=== PATIENT | female | born 1985 | race Caucasian/White ===

== ENCOUNTER 2017-08-19 06:48 | Inpatient (IN) | payer OTHER ==
[2017-08-19] MEDS ORDERED: LR / Pitocin 40 units/1000 ml 1,000 ML ONE (07:10)
[2017-08-19] MEDS ORDERED: Lidocaine 1% (PF) 30 ML VIAL ONE (07:11)
[2017-08-19] MEDS ORDERED: Oxytocin 10 UNITS/ML VIAL ONE (07:11)
--- NOTE | 2017-08-19 08:08 | PDOC.LDHP ---
Labor and Delivery H&P Chief complaint: contractions HPI: Patient started candace at 0530 this am. Denies LOF, VB. + FM Current gestational age (weeks): 39 Dating criteria: last menstrual period, first trimester ultrasound Grav: 8 Para: 5 Current complications: none Past Medical History: Hypothyroid - not on medication Current medications: pre- vitamins Social history: none - Physical Exam Vital signs reviewed and normal: yes General: breathing through contractions Heart: RRR Lungs: nonlabored breathing Abdomen: gravid Extremeties: trace edema FHT: category 1 - Vaginal Exam cm dilated: 9 (per RN) Effacement: 100% Station: 2+ - OB Labs Blood type: A RH: negative Antibody Screen: negative HIV: negative RPR: negative HEPSAg: negative 1 hour GCT: negative GBS: negative Urine drug screen: not done - Assessment L&D Assessment: term patient in labor - Plan Plan: admit to L&D, other (Low intervention protocol)
[2017-08-19] MEDS ORDERED: Lidocaine 1% (PF) 30 ML VIAL SC PRN (08:10)
[2017-08-19] MEDS ORDERED: Ondansetron HCl/PF 4 MG/2 ML Vial IVP PRN ×2 (08:10→10:29)
[2017-08-19] MEDS ORDERED: Ibuprofen 800 MG TAB PO PRN (08:10)
[2017-08-19] MEDS ORDERED: Promethazine HCl 25 MG/ML VIAL IM PRN (08:10)
[2017-08-19] MEDS ORDERED: LR / Pitocin 40 units/1000 ml 1,000 ML IV PRN (08:10)
[2017-08-19] MEDS ORDERED: Misoprostol 200 MCG TAB PR PRN (08:10)
[2017-08-19] MEDS ORDERED: Acetaminophen 500 MG TAB PO PRN (08:10)
[2017-08-19] MEDS ORDERED: Carboprost 250 MCG/ML AMP IM PRN (08:10)
[2017-08-19] MEDS ORDERED: Diphenoxylate HCl/Atropine Tablet PO PRN ×2 (08:10)
[2017-08-19] MEDS ORDERED: HYDROcodone/Acetaminophen 5/325 mg Tablet PO PRN ×4 (08:10→10:29)
--- NOTE | 2017-08-19 08:10 | PDOC.OPDEL ---
OB Operative/Delivery Note Delivery Dr/Surgeon: Kerrie Rubio CNM Pre-Delivery Diagnosis: active labor Procedure/Post Delivery Dx: spontaneous vaginal delivery Weeks gestation: 39 Anesthesia: none - Findings A Sex: female Weight: 9 lb 13 oz - 1 min: 8 - 5 min: 9 - Additional Findings/Plan Placenta delivered: spontaneous Repaired Obstetrical Laceration: periurethral (Not Repaired - hemostatic) Estimated blood loss: 300 Compilations/Other Findings: Precipitous delivery Post delivery plan: routine recovery
[2017-08-19 08:15] VITALS: BMI 36.2
[2017-08-19] MEDS ORDERED: Oxytocin 10 UNITS/ML VIAL IM SCH (08:15)
[2017-08-19 08:32] LABS: Hematocrit 36.7 % (36.0-47.0); Mean Platelet Volume 8.2 fL (7.4-10.4); Red Blood Cell (RBC) Count 4.32 mill/uL (4.20-5.40); White Blood Cell (WBC) Count 15.8 thou/uL (4.8-10.8)
[2017-08-19] MEDS ORDERED: FLU VACC QS2017-18 36 mo. & older 0.5 ML SYRINGE IM ONE (09:30)
[2017-08-19] MEDS ORDERED: Docusate Calcium (SURFAK) 240 MG CAP PO SCH ×2 (10:29→11:15)
[2017-08-19] MEDS ORDERED: Measles/Mumps/Rubella 10 MCG/0.5 ML VIAL SC ONE (10:29)
[2017-08-19] MEDS ORDERED: Bisacodyl 10 MG SUPP PR PRN (10:29)
[2017-08-19] MEDS ORDERED: Milk Of Magnesia 30 ML UDCUP PO PRN (10:29)
[2017-08-19] MEDS ORDERED: Prenatal Vitamin 1 TAB PO SCH ×2 (10:29→11:15)
[2017-08-19] MEDS ORDERED: Adacel (T-DAP) 0.5 ML VIAL IM ONE (10:29)
[2017-08-19] MEDS ORDERED: LR / Pitocin 40 units/1000 ml 1,000 ML IV SCH (10:29)
[2017-08-19] MEDS ORDERED: Benzocaine/Menthol 20-0.5% 60 ML CAN TOP PRN (10:29)
[2017-08-19] MEDS ORDERED: Misoprostol 200 MCG TAB VAG SCH (10:29)
[2017-08-19] MEDS ORDERED: Lanolin Ointment 7 GM TUBE TOP PRN (10:29)
[2017-08-19] MEDS: Ferrous Sulfate 325 MG TAB PO SCH (11:29)
[2017-08-19] MEDS ORDERED: Sodium Chloride 0.9% 10 ML ONE (13:36)
[2017-08-19] MEDS: Ibuprofen 800 MG TAB PO SCH ×2 (14:53→21:13)
[2017-08-19] MEDS: Docusate Calcium (SURFAK) 240 MG CAP PO SCH (20:07)
[2017-08-20 05:10] LABS: Hematocrit 25.4 % (36.0-47.0); Mean Platelet Volume 7.9 fL (7.4-10.4); Red Blood Cell (RBC) Count 2.94 mill/uL (4.20-5.40); White Blood Cell (WBC) Count 16.8 thou/uL (4.8-10.8)
[2017-08-20] MEDS: Ibuprofen 800 MG TAB PO SCH (05:41)
[2017-08-20 08:34] VITALS: BP 119/77; TEMP 98.3
--- NOTE | 2017-08-20 08:48 | PDOC.PP ---
Post Progress Note Post Day #: 1 Subjective: pt is doing well. no concerns. passed a large clot after first time up to bathroom, with slight dizziness after, but feeling okay now. PO intake tolerated: yes Flatus: yes Ambulation: yes Vital Signs (12 hours) Temp Pulse Resp BP 08/20/17 08:33 98.3 F 103 H 18 119/77 08/20/17 03:50 97.6 F 88 18 112/80 08/20/17 03:48 97.9 F 104 H 18 08/20/17 01:17 97.9 F 104 H 18 Weight Weight 218 lb - Physical Examination General: NAD Cardiovascular: no m/r/g Respiratory: clear to auscultation bilaterally Abdominal: + bowel sounds, lochia (minimal) Fundus firm & at: u-1 Extremities: negative homans (B) Skin: CS incision dry & intact Perineum: intact Neurological: no gross focal deficits Psychiatric: A&Ox3, normal affect Result Diagrams: 08/20/17 04:50 Additional Labs: Post Labs Hep Bs Antigen Non-Reactive S/CO (NonReactive) 08/19/17 07:23 (1) (spontaneous vaginal delivery) Code(s): O80 - ENCOUNTER FOR FULL-TERM UNCOMPLICATED DELIVERY Status: Acute - Assessment/Plan discharge home today on iron
[2017-08-20] MEDS ORDERED: Prenatal Vitamin 1 TAB PO SCH (09:00)
[2017-08-20] MEDS: Ferrous Sulfate 325 MG TAB PO SCH (10:13)
[2017-08-20] MEDS: Docusate Calcium (SURFAK) 240 MG CAP PO SCH (10:13)
== END 2017-08-20 13:40 | disposition home or self-care (01) | DRG 775 ==
LOC: L&D/OP 06:48 → L&D-LIB 07:29 → 3SW 10:37
PROVIDERS: ADMIT Student in an Organized Health Care Education/Training Program; ATTEND Student in an Organized Health Care Education/Training Program
PROC: 10E0XZZ Delivery of Products of Conception, External Approach (ICD-10-PCS; principal; 2017-08-19)
DX: O99.284 Endocrine, nutritional and metabolic diseases complicating childbirth (principal); E03.9 Hypothyroidism, unspecified; Z37.0 Single live birth; Z3A.39 39 weeks gestation of pregnancy; O71.82 Other specified trauma to perineum and vulva; O62.3 Precipitate labor; Z23 Encounter for immunization
CPT/HCPCS: 36415; 85027; 85461; 86780; 87340; 90384; 96372; A4216; J2001; J2590

== ENCOUNTER 2019-10-13 23:18 | Inpatient (IN) | payer OTHER, SELFPAY ==
[2019-10-14] VITALS: BMI 38.4
[2019-10-14] MEDS ORDERED: Promethazine HCl 25 MG/ML VIAL IM PRN (00:51)
[2019-10-14] MEDS ORDERED: Acetaminophen 500 MG TAB PO PRN (00:51)
[2019-10-14] MEDS ORDERED: Butorphanol Tartrate 1 MG/ML VIAL SLOW IVP PRN (00:51)
[2019-10-14] MEDS ORDERED: hydrALAZINE 20 MG/ML VIAL SLOW IVP PRN ×2 (00:51→02:39)
[2019-10-14] MEDS ORDERED: Ondansetron PF 4 MG/2 ML Vial IVP PRN (00:51)
[2019-10-14] MEDS ORDERED: NS / Oxytocin 40 units/1000ml 1,000 ML IV SCH (01:00)
[2019-10-14] MEDS ORDERED: Ibuprofen 800 MG TAB PO PRN (01:00)
[2019-10-14] MEDS ORDERED: Methylergonovine 0.2 MG/ML VIAL IM PRN (01:00)
[2019-10-14] MEDS ORDERED: Misoprostol 200 MCG TAB RC PRN (01:00)
[2019-10-14] MEDS ORDERED: Lidocaine 1% (PF) 30 ML VIAL SC PRN (01:00)
[2019-10-14] MEDS ORDERED: Carboprost 250 MCG/ML AMP IM PRN (01:00)
[2019-10-14] MEDS ORDERED: NS w/ Oxytocin 10 units 500 ML IV SCH ×2 (01:00)
[2019-10-14 01:28] LABS: Hemoglobin 14.2 g/dL (12.0-16.0); Mean Corpuscular HGB CONC 34.3 g/dL (32.0-36.0); Mean Corpuscular Hemoglobin 29.4 pg (27.0-31.0); Mean Corpuscular Volume 85.7 fL (78.0-98.0); Mean Platelet Volume 8.8 fL (7.4-10.4); Platelet Count 274 thou/uL (130-400); RBC Distribution Width 14.7 % (11.5-14.5); Red Blood Cell (RBC) Count 4.85 mill/uL (4.20-5.40); White Blood Cell (WBC) Count 16.3 thou/uL (4.8-10.8)
[2019-10-14] MEDS ORDERED: Oxytocin 10 UNITS/ML VIAL ONE (01:37)
[2019-10-14] MEDS: NS / Oxytocin 40 units/1000ml 1,000 ML IV SCH ×2 (02:10→03:58)
[2019-10-14 02:15] LABS: HBSAg Index 0.21 S/CO (0-0.99); Hep B Surf Ag Non-Reactive S/CO (NonReactive)
--- NOTE | 2019-10-14 02:23 | PDOC.OPDEL ---
OB Operative/Delivery Note Delivery Dr/Surgeon: Robi Pre-Delivery Diagnosis: active labor Procedure/Post Delivery Dx: spontaneous vaginal delivery (Head OA, no nuchal cord, shoulders and body easily followed, mouth and nares bulb suctioned, copious meconium stained fluid followed the baby.) Weeks gestation: 40 Anesthesia: none - Findings A Sex: male - 1 min: 9 - 5 min: 9 - Additional Findings/Plan Placenta delivered: manual removal (Placenta began to separate with a large gush of blood observed. Due to the bleeding I manually removed the placenta with help from the RN on fundal pressure. Easily able to remove the remainder of the placenta. Appeared intact. 3VC.) Repaired Obstetrical Laceration: none Estimated blood loss: 150 Post delivery plan: routine recovery
--- NOTE | 2019-10-14 02:26 | PDOC.LDHP ---
Labor and Delivery H&P Chief complaint: contractions HPI: SROM at home at 2230 on 10/13. Contractions started after that. Progressed quickly in labor. Current gestational age (weeks): 40 Due date: 10/18/19 Dating criteria: last menstrual period, first trimester ultrasound Grav: 9 Para: 6 Current complications: none Abnormal US findings: No Current medications: pre- vitamins Previous surgical history: none Allergies/Adverse Reactions: Allergies Allergy/AdvReac Type Severity Reaction Status Date / Time No Known Allergies Allergy Verified 10/14/19 00:00 - Physical Exam General: NAD, breathing through contractions Heart: RRR Lungs: CTAB Abdomen: gravid Extremeties: no edema FHT: category 1 [place] contractions every: 2 minutes - Vaginal Exam cm dilated: 4 Effacement: 75% Station: -3 - OB Labs Blood type: A RH: negative Antibody Screen: negative HIV: negative RPR: negative HEPSAg: negative 1 hour GCT: negative GBS: negative Urine drug screen: not done Rubella: immune - Assessment L&D Assessment: term patient in labor - Plan Plan: admit to L&D
[2019-10-14] MEDS ORDERED: Milk Of Magnesia 30 ML UDCUP PO PRN (02:39)
[2019-10-14] MEDS ORDERED: Bisacodyl 10 MG SUPP PR PRN (02:39)
[2019-10-14] MEDS ORDERED: Benzocaine-Menthol 82.5 ML CAN TOP PRN (02:39)
[2019-10-14] MEDS ORDERED: HYDROcodone/Acetaminophen 5/325 mg Tablet PO PRN (02:39)
[2019-10-14] MEDS: Ibuprofen 800 MG TAB PO SCH ×3 (02:52→18:35)
[2019-10-14 04:32] LABS: Syphilis Antibody Nonreactive (Nonreactive); Syphilis Antibody Index 0.05 S/CO (<1.00 Non-Reactive)
[2019-10-14] MEDS: Ferrous Sulfate 325 MG TAB PO SCH ×2 (08:09→15:48)
[2019-10-14] MEDS: Docusate Calcium (SURFAK) 240 MG CAP PO SCH ×2 (08:14→23:06)
[2019-10-14] MEDS ORDERED: Calcium Carbonate 500 MG ChewTAB PO PRN (16:40)
[2019-10-15] MEDS: Ibuprofen 800 MG TAB PO SCH (04:20)
--- NOTE | 2019-10-15 06:46 | PDOC.PP ---
Post Progress Note Post Day #: 1 Subjective: Doing well, no complaints, well. Ready to go home/ PO intake tolerated: yes Flatus: yes Ambulation: yes Vital Signs (12 hours) Temp Pulse Resp BP Pulse Ox 10/15/19 00:29 97.9 F 91 18 97/52 L 98 10/14/19 19:12 98.9 F 101 H 16 109/76 97 Weight Weight 231 lb - Physical Examination General: NAD Cardiovascular: no m/r/g, RRR Respiratory: clear to auscultation bilaterally, non-labored breathing Abdominal: + bowel sounds, lochia, no distention, appropriately TTP Extremities: negative homans (B) Result Diagrams: 10/14/19 01:14 Additional Labs: Post Labs Blood Type A NEGATIVE 10/14/19 01:14 Hep Bs Antigen Non-Reactive S/CO (NonReactive) 10/14/19 01:14 (1) (spontaneous vaginal delivery) Code(s): O80 - ENCOUNTER FOR FULL-TERM UNCOMPLICATED DELIVERY Status: Acute - Assessment/Plan ROutine PP care D/C home F/U in 6 weeks
[2019-10-15 08:04] VITALS: BP 114/75; TEMP 98.2
[2019-10-15] MEDS: Docusate Calcium (SURFAK) 240 MG CAP PO SCH (09:13)
[2019-10-15] MEDS: Ferrous Sulfate 325 MG TAB PO SCH (09:13)
== END 2019-10-15 10:10 | disposition home or self-care (01) | DRG 807 ==
LOC: L&D/OP 23:18 → L&D 10-14 00:58 → 3SE 10-14 04:32
PROVIDERS: ADMIT Family Medicine; ATTEND Family Medicine
PROC: 10E0XZZ Delivery of Products of Conception, External Approach (ICD-10-PCS; principal; 2019-10-14)
DX: O77.0 Labor and delivery complicated by meconium in amniotic fluid (principal); Z37.0 Single live birth; Z3A.40 40 weeks gestation of pregnancy
CPT/HCPCS: 36415; 85027; 86780; 86850; 86900; 86901; 87340; 99285; J2590